=== PATIENT | female | born 1990 ===

== ENCOUNTER 2017-08-21 20:07 | Emergency (ER) ==
[2017-08-21 20:13] VITALS: BP 115/76; TEMP 97.4; BMI 33.7
[2017-08-21] MEDS ORDERED: TYLENOL PO STA (20:29)
[2017-08-21] MEDS ORDERED: KEFLEX PO STA (20:29)
--- NOTE | 2017-08-21 20:33 | ED.PDOC ---
General ED Provider: Dr. NÉSTOR PETE-ER Chief Complaint: Toe Pain/Injury Stated Complaint: i dropped a glass on my toe--it hurts Time Seen by Physician: 20:31 Mode of Arrival: Wheelchair Information Source: Patient Exam Limitations: No limitations Nursing and Triage Documentation Reviewed and Agree: Yes Reviewed sepsis parameters & appropriate labs ordered?: Yes System Inflammatory Response Syndrome: Not Applicable Sepsis Protocol: For patient's 13 years and over: Temp is 96.8 and below OR 101 and greater Pulse >90 BPM Resp >20/minute Acutely Altered Mental Status Are patient's symptoms suggestive of a new infection, such as: -Pneumonia -Skin, Soft Tissue -Endocarditis -UTI -Bone, Joint Infection -Implantable Device -Acute Abdominal Infection -Wound Infection -Meningitis -Blood Stream Catheter Infection -Unknown Musculoskeletal Complaint Exam - Ankle/Foot Complaint/Exam Location of Injury: Reports: Right, Toe #1 Mechanism of Injury: Reports: Trauma Onset/Duration: one hour Symptoms Are: Reports: Still present Onset of Pain: Reports: Immediate Initial Severity: Mild Current Severity: Mild Location: Reports: Discrete (right great toe) Character: Reports: Dull, Aching Aggravating: Reports: Movement, Weight bearing, Prolonged standing Able to Bear Weight: Yes Associated Signs and Symptoms: Reports: Swelling Lower Extremity Findings: Present: Swelling, Ecchymosis, Tenderness Achilles Tendon Abnormality: No Differential Diagnosis: Open Fracture Review of Systems - Review Of Systems Constitutional: Reports: No symptoms Eyes: Reports: No symptoms Ears, Nose, Mouth, Throat: Reports: No symptoms Respiratory: Reports: No symptoms Cardiac: Reports: No symptoms GI: Reports: No symptoms : Reports: No symptoms Musculoskeletal: Reports: No symptoms Skin: Reports: No symptoms Neurological: Reports: No symptoms Endocrine: Reports: No symptoms Hematologic/Lymphatic: Reports: No symptoms All Other Systems: Reviewed and Negative Past Medical History - Past Medical History Previously Healthy: Yes Endocrine: Reports: Unknown Cardiovascular: Reports: Unknown Respiratory: Reports: Unknown Hematological: Reports: Unknown Gastrointestinal: Reports: Unknown Genitourinary: Reports: Unknown Neuro/Psych: Reports: Unknown Musculoskeletal: Reports: Unknown Cancer: Reports: Unknown Last Menstrual Period: 9months - Surgical History General Surgical History: Reports: Unknown - Family History Family History: Reports: Unknown - Social History Smoking Status: Never smoker Hx Substance Use: No Alcohol Screening: None - Immunizations Tetanus Shot up to Date: No Physical Exam - Physical Exam Appearance: Well-appearing, No pain distress, Well-nourished Pain Distress: Mild Eyes: TRUE, EOMI, Conjunctiva clear ENT: Ears normal, Nose normal, Oropharynx normal Neck: Supple Respiratory: Airway patent, Breath sounds clear, Breath sounds equal, Respirations nonlabored Cardiovascular: RRR, Pulses normal, No rub, No murmur GI/: Soft, Nontender, No masses, Bowel sounds normal, No Organomegaly Musculoskeletal: Limited ROM (exam does confim laceration through nail) Skin: Warm, Dry, Normal color Neurological: Sensation intact, Motor intact, Reflexes intact, Cranial nerves intact, Alert, Oriented Psychiatric: Affect appropriate, Mood appropriate Interpretation - Radiology Interpretation Radiology Interpretation By: ED Physician Radiology Results: Positive Exam Interpreted: Other (fx distal phlanx) Critical Care Note - Critical Care Note Total Time (mins): 0 Course - Course Orders, Labs, Meds: Orders Category Date Time Status Cast shoe [ED SPLINT APPLICATION] .ONCE EMERGENCY 08/21/17 20:28 Active Wound care [ED WOUND CARE] .ONCE EMERGENCY 08/21/17 20:29 Active Acetaminophen [Tylenol] MEDS 08/21/17 20:29 Discontinued 650 mg PO ONCE STA Cephalexin [Keflex] MEDS 08/21/17 20:29 Discontinued 500 mg PO ONCE STA TOE(S), RIGHT MIN 2V Stat RADS 08/21/17 20:10 Taken Medications Discontinued Medications Generic Name Dose Route Start Last Admin Trade Name Freq PRN Reason Stop Dose Admin Acetaminophen 650 mg 08/21/17 20:29 Tylenol PO 08/21/17 20:30 ONCE STA Cephalexin 500 mg 08/21/17 20:29 Keflex PO 08/21/17 20:30 ONCE STA Vital Signs: Temp Pulse Resp BP Pulse Ox 08/21/17 20:07 97.4 F L 71 18 115/76 98 Departure - Departure Time of Disposition: 20:33 Disposition: HOME SELF-CARE Discharge Problem: Open fracture of distal phalanx Instructions: Toe Fracture (ED) Condition: Good Pt referred to PMD for follow-up: Yes IPMP verified?: No Additional Instructions: change dressing bid and apply bactroban ointment---keflex 500mg bid x 5 days-- wear cast shoe--tylenol for pain--f/u with pcp this week for ortho referral Allergies/Adverse Reactions: Allergies No Known Allergies Allergy (Verified 08/21/17 20:13) Home Medications: Ambulatory Orders Vit37/Iron/Folic Acid [Prenata Chewable Tablet] 1 each PO DAILY Disposition Discussed With: Patient
--- NOTE | 2017-08-22 07:37 | DI ---
EXAM: Three views of the right toes. History: Trauma of the right first digit. Findings / impression: Mildly displaced and minimally comminuted fracture of the first tuft with adj acent soft tissue swelling. No dislocation.
== END 2017-08-21 20:53 | disposition home or self-care (01) ==
LOC: ED 20:07
DX: S92.421B Displaced fracture of distal phalanx of right great toe, initial encounter for open fracture (principal); W20.8XXA Other cause of strike by thrown, projected or falling object, initial encounter
CPT/HCPCS: 99283